=== PATIENT | male | born 1995 | race Caucasian/White ===

== ENCOUNTER 2019-12-31 16:53 | Emergency (ER) | payer SELFPAY ==
[~2019-12-31] VITALS: Ht 188 cm; Wt 86.2 kg
[2019-12-31 16:55] VITALS: BP 129/80
[2019-12-31] MEDS ORDERED: TDAP [DIPH/PERTUSSIS/TET] 0.5 ML VIAL IM ONE ×2 (17:15→17:30)
[2019-12-31] MEDS ORDERED: LIDOCAINE HCL/MPF 1% 30 ML VIAL IJ ONE (17:15)
--- NOTE | 2019-12-31 17:19 | NUR ---
KALEIGH GAR. DR. LAW LIN.
[2019-12-31] MEDS ORDERED: LIDOCAINE HCL/PF 1% 30 ML VIAL TP ONE (17:30)
== END 2019-12-31 17:27 | disposition left against medical advice (07) ==
LOC: ER 16:55
DX: S61.211A Laceration without foreign body of left index finger without damage to nail, initial encounter (principal); Z53.21 Procedure and treatment not carried out due to patient leaving prior to being seen by health care provider; W26.0XXA Contact with knife, initial encounter; Y93.89 Activity, other specified; Y92.89 Other specified places as the place of occurrence of the external cause; Y99.8 Other external cause status
CPT/HCPCS: 73130-TC; 90715; A6403; J3490